=== PATIENT | male | born 1950 | race Caucasian/White ===

== ENCOUNTER → 2016-06-24 | Outpatient (CLI) | payer OTHER ==
[2015-01-19 16:56] VITALS: BP 144/83
--- NOTE | 2016-06-24 10:58 | KCIC ---
Testicular ultrasound Indication: Left testicular mass Technique: Multiple real-time grayscale sonographic images were obtained over the scrotum. Findings: Right testicle measures 4.3 x 3.0 x 2.5 centimeters. Normal arterial blood flow is noted. There is a mildly prominent epididymal head cyst which shows an internal septation and measures 1.6 x 1.8 x 1.2 centimeters. No abnormal blood flow. A varicocele is noted on the right. The left testicle measures 4.9 x 2.9 x 2.5 centimeters. Normal arterial blood flow is noted. There is a left-sided hydrocele. There is also a large septated epididymal head cyst that measures 3.1 x 3.0 x 2.6 centimeters no abnormal blood flow. Impression: - There are bilateral epididymal head cysts larger on the left where it measures up to 3.1 centimeters size. These are generally considered benign. - Mild right-sided varicocele. - Small left-sided hydrocele. Electronically signed by: Reji Berumen (Jun 24, 2016 10:56:45)
== END | disposition home or self-care (01) ==
LOC: KCIC US 08:27
PROVIDERS: ATTEND Physician Assistant Medical
DX: N50.9 Disorder of male genital organs, unspecified (principal); I86.1 Scrotal varices; N43.3 Hydrocele, unspecified
CPT/HCPCS: 76870

== ENCOUNTER 2021-02-07 15:06 | Emergency (ER) | payer MEDICARE ==
[~2021-02-07] VITALS: Ht 188 cm; Wt 115.0 kg
--- NOTE | 2021-02-07 15:55 | PHYS DOC ---
Past Medical History Past Medical History: CAD, Hypertension Additional Past Medical Histor: throat ca, with radiation,right arm fxwith plates,AAA, Past Surgical History: Coronary Bypass Surgery Additional Past Surgical Histo: CEA Smoking Status: Former Smoker Alcohol Use: Heavy Drug Use: None General Adult EDM: Chief Complaint: LACERATION/AVULSION HPI: HPI: Patient is a 70-year-old male that comes in with a laceration to his left hand. Patient states he has a new pocket knife that he was working with today and he s aid he was using it with his right hand and he cut his left hand at the first metacarpal area. Patient states blood was flowing pretty good he was able to hold direct pressure and stop the bleeding. Currently a pressure dressing is in place no active bleeding noted. Patient states his last tetanus status was less than 5 years ago. Patient does state that he is on anticoagulation therapy Xarelto. Review of Systems: Review of Systems: Constitutional: Denies fever or chills. [] Eyes: Denies change in visual acuity. [] HENT: Denies nasal congestion or sore throat. [] Respiratory: Denies cough or shortness of breath. [] Cardiovascular: Denies chest pain or edema. [] GI: Denies abdominal pain, nausea, vomiting, bloody stools or diarrhea. [] : Denies dysuria. [] Musculoskeletal: Denies back pain or joint pain. [] Integument: Laceration left hand Neurologic: Denies headache, focal weakness or sensory changes. [] Endocrine: Denies polyuria or polydipsia. [] Lymphatic: Denies swollen glands. [] Psychiatric: Denies depression or anxiety. [] Heart Score: C/O Chest Pain: N/A Risk Factors: Risk Factors: DM, Current or recent (<one month) smoker, HTN, HLP, family history of CAD, obesity. Risk Scores: Score 0 - 3: 2.5% MACE over next 6 weeks - Discharge Home Score 4 - 6: 20.3% MACE over next 6 weeks - Admit for Clinical Observation Score 7 - 10: 72.7% MACE over next 6 weeks - Early Invasive Strategies Current Medications: Current Medications Medications (Trade) Dose Ordered Sig/Noel Start Time Stop Time Status Last Admin Dose Admin Lidocaine/ Epinephrine (LIDOCAINE 1%-EPI 1:100,000 Multi-Dose) 20 ml 1X ONCE 02/07/21 16:00 02/07/21 16:01 UNV Allergies: Allergies: Allergies Coded Allergies Type Severity Reaction Last Updated Verified No Known Drug Allergies 02/07/21 No Physical Exam: PE: Constitutional: Well developed, well nourished, no acute distress, non-toxic appearance. [] HENT: Normocephalic, atraumatic, bilateral external ears normal, oropharynx moist, no oral exudates, nose normal. [] Eyes: PERRLA, EOMI, conjunctiva normal, no discharge. [] Neck: Normal range of motion, no tenderness, supple, no stridor. [] Cardiovascular:Heart rate regular rhythm, no murmur [] Lungs & Thorax: Bilateral breath sounds clear to auscultation [] Abdomen: Bowel sounds normal, soft, no tenderness, no masses, no pulsatile m asses. [] Skin: Warm, dry, no erythema, no rash. [] Back: No tenderness, no CVA tenderness. [] Extremities: Left thumb neurovascular intact, laceration noted to left hand near the first metacarpal approximately 2 cm, cap refill less than 2 seconds distal to the injury Neurologic: Alert and oriented X 3, normal motor function, normal sensory function, no focal deficits noted. [] Psychologic: Affect normal, judgement normal, mood normal. [] EKG: EKG: [] Radiology/Procedures: Radiology/Procedures: Indication: left hand laceration Procedure: The patient was placed in the appropriate position and anesthesia around the left hand first metacarpal laceration, lidocaine 1% with epinephrine was used to anesthetize the area. Area was cleansed with Betadine solution then irrigated with 120 mL of normal saline. Laceration was closed with 4-0 Ethilon 6 interrupted sutures. A nonadherent dressing was applied by nursing staff. Total repaired wound length: 2 cm The patient tolerated the procedure well Complications: None.[] Course & Med Decision Making: Course & Med Decision Making Pertinent Labs and Imaging studies reviewed. (See chart for details) Laceration repair completed, patient tolerated well no complications noted. Sutures out in 7 to 10 days, patient may return to the emergency department or follow-up with primary care for suture removal. Cleanse wound twice daily with mild cleansing soap pat dry. Keep wound clean and dry. Continue current medications, return to the emergency department for any signs and symptoms of infection or uncontrolled bleeding [] Dragon Disclaimer: Dragon Disclaimer: This electronic medical record was generated, in whole or in part, using a voice recognition dictation system. Departure Departure Impression: Primary Impression: Laceration of left hand Qualified Codes: S61.412A - Laceration without foreign body of left hand, initial encounter Disposition: HOME / SELF CARE / HOMELESS Condition: STABLE Referrals: JAKUB GARCIA MD (PCP) Patient Instructions: Laceration Care, Adult Additional Instructions: Keep wound clean and dry, may cover wound if oozing or feel the wound may be dirty at some point time Sutures out in 7 to 10 days may return to the emergency department, or follow-up with your primary care for suture removal Clean wound twice daily with mild soap and water pat dry do not rub Watch for any signs and symptoms of infection including redness, warmth to the wound, drainage, or swelling MIRTHA LEDESMA BICYCLE FITTER Feb 07, 2021 15:55
[2021-02-07] MEDS ORDERED: LIDOCAINE 1%/EPI 1:100,000 20 ML VIAL. INJ ONE (16:00)
[2021-02-07 16:13] VITALS: BP 98/56
== END 2021-02-07 16:42 | disposition home or self-care (01) ==
LOC: ER 15:06
DX: S61.412A Laceration without foreign body of left hand, initial encounter (principal); I10 Essential (primary) hypertension; I25.10 Atherosclerotic heart disease of native coronary artery without angina pectoris; Z87.891 Personal history of nicotine dependence; Z95.1 Presence of aortocoronary bypass graft; F10.20 Alcohol dependence, uncomplicated; Y90.9 Presence of alcohol in blood, level not specified; Y28.1XXA Contact with knife, undetermined intent, initial encounter; Y93.89 Activity, other specified; Y92.89 Other specified places as the place of occurrence of the external cause; Y99.8 Other external cause status
CPT/HCPCS: 12001; 99282; J3490